=== PATIENT | female | born 1940 | race Caucasian/White ===

== ENCOUNTER 2017-08-30 10:40 | Inpatient (IN) | payer MEDICARE, OTHER ==
[~2017-08-30] VITALS: Ht 152.4 cm; Wt 84.8 kg
[~2017-08-30 10:40] MED LIST: ACET500 PO; ANTI DIARRHEA PO; ASCO500 PO; ASPI325 PO; ASTELIN; Amoxicillin875 MG PO; CALMAGZIN PO; CIPRO500 MG PO; DIPH50 PO; FAMO20 PO; FEXPSEER PO; FISH1000 PO; HYDACE10B PO; HYDR1TAB94 PO; LEVSOD25 PO; LISI10 PO; LISI20 PO; METF500 PO; METF500C PO; METR500 PO; NORT25 PO; Refresh Eye Dr1 EACH OP; SIMV10 PO; TOLT2 PO; UBID10 PO
[2017-09-05] MEDS ORDERED: LISI20 PO (14:24)
[2017-09-05] MEDS ORDERED: Allegra-D 12 H1 EACH PO (14:25)
[2017-09-05] MEDS ORDERED: LEVSOD75 PO (14:26)
[2017-09-05] MEDS ORDERED: SIMV40 PO (14:27)
[2017-09-05] MEDS ORDERED: CALCIUM PO (14:27)
[2017-09-05] MEDS ORDERED: [UNRECOGNIZED DRUG - OTHER] PO (14:28)
[2017-09-05] MEDS ORDERED: ACET325 PO (14:29)
[2017-09-05] MEDS ORDERED: GAVILAX17 GM PO (14:31)
[2017-09-05] MEDS ORDERED: METF500 PO (14:31)
[2017-09-05] MEDS ORDERED: TOLT2 PO (14:31)
[2017-09-05] MEDS ORDERED: TUMS200 MG PO (14:32)
[2017-09-05] MEDS ORDERED: FISH OIL + D31 EACH PO (14:33)
[2017-09-05] MEDS ORDERED: CHOL10002 PO (14:33)
[2017-09-05] MEDS ORDERED: NORT25 PO (14:34)
[2017-09-05] MEDS ORDERED: METR500 PO (14:35)
[2017-09-05] MEDS ORDERED: COQ1050 MG PO (14:40)
[2017-09-16 05:41] LABS: BASOPHILS ABSOLUTE AUTO 0.02 K/mm3 (0.00-0.23); BASOPHILS PERCENT AUTO 0 % (0-2); EOSINOPHILS ABSOLUTE AUTO 0.01 K/mm3 (0.00-0.68); EOSINOPHILS PERCENT AUTO 0 % (0-6); Hematocrit 32.1 % (33.0-51.0); Hemoglobin 10.5 g/dL (11.5-16.0); IMMATURE GRAN ABSOLUTE AUTO 0.06 K/mm3 (0.00-0.10); IMMATURE GRAN PERCENT AUTO 1 % (0-1); LYMPHOCYTES ABSOLUTE AUTO 1.63 K/mm3 (0.84-5.20); LYMPHOCYTES PERCENT AUTO 13 % (21-46); MONOCYTES ABSOLUTE AUTO 0.76 K/mm3 (0.16-1.47); MONOCYTES PERCENT AUTO 6 % (4-13); Mean Corpuscular HGB 28.7 pg (26.0-34.0); Mean Corpuscular HGB Conc 32.7 g/dL (31.5-36.5); Mean Corpuscular Volume 88 fL (80-100); NEUTROPHILS ABSOLUTE AUTO 10.38 K/mm3 (1.96-9.15); NEUTROPHILS PERCENT AUTO 81 % (41-73); Platelet Count 292 K/mm3 (150-400); RDW Coefficient Variation 13.2 % (11.7-14.2); RDW Standard Deviation 41.8 fL (35.1-46.3); Red Blood Cell Count 3.66 M/mm3 (3.80-5.20); White Blood Cell Count 12.86 K/mm3 (4.00-11.30)
[2017-09-16 06:02] LABS: Anion Gap 9 mmol/L (6-16); Blood Urea Nitrogen 23 mg/dL (8-24); Bun/Creatinine Ratio 30.3 (12.0-20.0); CO2, Blood 26 mmol/L (21-32); Calcium, Blood 8.8 mg/dL (8.5-10.1); Chloride, Blood 97 mmol/L (98-108); Creatinine, Blood 0.76 mg/dL (0.40-1.00); Glomerular Filtration Rate >60 (60-); Glucose, Blood 131 mg/dL (70-99); Potassium, Blood 5.1 mmol/L (3.5-5.5); Sodium, Blood 132 mmol/L (136-145)
[2017-09-16] MEDS ORDERED: Percocet 5-3251 EACH PO (08:47)
[2017-09-16] MEDS ORDERED: ASPI325EC PO (08:47)
[2018-07-20] MEDS ORDERED: ALLEGRA ALLERGY60 MG PO (14:41)
[2018-07-20] MEDS ORDERED: Synthroid25 MCG PO (14:41)
[2018-07-20] MEDS ORDERED: [UNRECOGNIZED DRUG - OTHER] PO (14:43)
== END 2017-09-16 11:19 | disposition home or self-care (01) | DRG 483 ==
LOC: SURS 09-15 06:05 → PRE IP 09-15 07:30 → SURS 09-15 10:50
PROVIDERS: Orthopaedic Surgery
PROC: 0RRK0JZ Replacement of Left Shoulder Joint with Synthetic Substitute, Open Approach (ICD-10-PCS; principal; 2017-09-15 07:30)
DX: M19.012 Primary osteoarthritis, left shoulder (principal); E11.9 Type 2 diabetes mellitus without complications; E78.5 Hyperlipidemia, unspecified; I10 Essential (primary) hypertension; G47.33 Obstructive sleep apnea (adult) (pediatric); Z79.82 Long term (current) use of aspirin; Z79.84 Long term (current) use of oral hypoglycemic drugs; Z79.899 Other long term (current) drug therapy
CPT/HCPCS: 36415; 73030; 80048; 82947; 85025; 86850; 86900; 86901; 88300; 94762; 97110; 97161; 97165; 97530; 97535; C1776; G8978; G8979; G8987; G8988; G8989; J0171; J0690; J0735; J1100; J1885; J2250; J2405; J2710; J2795; J7120; Q0163

== ENCOUNTER → 2018-01-18 | Outpatient (CLI) | payer MEDICARE, OTHER ==
[~2018-01-18] MED LIST changes: +ACET325 PO; +ASPI325EC PO; +Allegra-D 12 H1 EACH PO; +CALCIUM PO; +CHOL10002 PO; +COQ1050 MG PO; +FISH OIL + D31 EACH PO; +GAVILAX17 GM PO; +LEVSOD75 PO; +Percocet 5-3251 EACH PO; +SIMV40 PO; +TUMS200 MG PO; +[UNRECOGNIZED DRUG - OTHER] PO
[2018-01-20 15:26] LABS: Stool Occult Bld Immuno 1 Negative (NEGATIVE); Stool Occult Bld Immuno 2 Negative (NEGATIVE)
== END ==
LOC: OLS 10:30 → LAB SHORT 10:30
PROVIDERS: Internal Medicine Gastroenterology
DX: Z86.010 Personal history of colon polyps (principal); K57.30 Diverticulosis of large intestine without perforation or abscess without bleeding; Z83.71 Family history of colonic polyps
CPT/HCPCS: 82274

== ENCOUNTER 2018-08-02 08:28 | Day surgery (SDC) | payer MEDICARE, OTHER ==
[~2018-08-02] VITALS: Ht 154.9 cm; Wt 89.5 kg
[~2018-08-02 08:28] MED LIST changes: +ALLEGRA ALLERGY60 MG PO; +Synthroid25 MCG PO; +[UNRECOGNIZED DRUG - OTHER] PO
== END 2018-08-02 10:36 | disposition home or self-care (01) ==
LOC: ORSCSDS 08:28
PROVIDERS: Ophthalmology
PROC: 08RJ3JZ Replacement of Right Lens with Synthetic Substitute, Percutaneous Approach (ICD-10-PCS; principal; 2018-08-02 10:00)
DX: H25.11 Age-related nuclear cataract, right eye (principal); I10 Essential (primary) hypertension; G47.33 Obstructive sleep apnea (adult) (pediatric); E11.9 Type 2 diabetes mellitus without complications; E66.01 Morbid (severe) obesity due to excess calories; Z68.37 Body mass index [BMI] 37.0-37.9, adult; Z79.899 Other long term (current) drug therapy; Z79.82 Long term (current) use of aspirin
CPT/HCPCS: 82947; J0360; J2250; J3010; J3301; V2632

== ENCOUNTER 2018-09-20 06:12 | Day surgery (SDC) | payer MEDICARE, OTHER ==
[~2018-09-20] VITALS: Ht 152.4 cm; Wt 90.3 kg
== END 2018-09-20 08:05 | disposition home or self-care (01) ==
LOC: ORSCSDS 06:12
PROVIDERS: Ophthalmology
PROC: 08RK3JZ Replacement of Left Lens with Synthetic Substitute, Percutaneous Approach (ICD-10-PCS; principal; 2018-09-20 07:30)
DX: H25.12 Age-related nuclear cataract, left eye (principal); I10 Essential (primary) hypertension; G47.33 Obstructive sleep apnea (adult) (pediatric); Z79.899 Other long term (current) drug therapy; E66.01 Morbid (severe) obesity due to excess calories; Z68.38 Body mass index [BMI] 38.0-38.9, adult
CPT/HCPCS: 82947; J2001; J2250; J3010; J3301; J7120; V2632

== ENCOUNTER 2019-09-27 07:48 | Day surgery (SDC) | payer MEDICARE, OTHER ==
[~2019-09-27] VITALS: Ht 152.4 cm; Wt 92.3 kg
[2019-09-27] MEDS ORDERED: ASPI325 PO (08:29)
[2019-09-27] MEDS ORDERED: CALCIUM-MAGNES1 EAC3 PO (08:30)
--- NOTE | 2019-09-27 10:44 | NUR ---
09/27/19 1044 Mele Hernández A SMALL SKIN TEARS ON RIGHT FOREARM NOTED AFTER REMOVING DRAPS. BACITRACIN, XEROFORM AND OPSITE PLACED. DR SHARMA AWARE.
--- NOTE | 2019-09-27 11:10 | NUR ---
09/27/19 1110 Juanita Bates PT ARRIVED IN STEPDOWN AND BECAME NAUSEAS TRANSFERRING TO CHAIR. O2 SAT WAS DECREASED AT 88-89. BP AND HR WAS DECREASED AT 99/51 AND 51. ZOFRAN GIVEN AND 02 WAS REAPPLIED 1OLPM VIA FACE TENT. O2 INCREASED TO 99. BP AND HR REMAIN UNCHANGED.
== END 2019-09-27 13:37 | disposition home or self-care (01) ==
LOC: ORSCSDS 07:48
PROVIDERS: Orthopaedic Surgery
PROC: 0RQS0ZZ Repair Right Carpometacarpal Joint, Open Approach (ICD-10-PCS; principal; 2019-09-27 09:30)
PROC: 0LN70ZZ Release Right Hand Tendon, Open Approach (ICD-10-PCS; principal; 2019-09-27 09:30)
PROC: 0LX70ZZ Transfer Right Hand Tendon, Open Approach (ICD-10-PCS; principal; 2019-09-27 09:30)
DX: M18.11 Unilateral primary osteoarthritis of first carpometacarpal joint, right hand (principal); M65.311 Trigger thumb, right thumb; I10 Essential (primary) hypertension; E11.9 Type 2 diabetes mellitus without complications; E78.5 Hyperlipidemia, unspecified; E66.01 Morbid (severe) obesity due to excess calories; Z68.39 Body mass index [BMI] 39.0-39.9, adult; Z79.899 Other long term (current) drug therapy; Z79.82 Long term (current) use of aspirin; Z79.84 Long term (current) use of oral hypoglycemic drugs
CPT/HCPCS: 82947; A9270-GY; C1713; J0690; J1100; J2250; J2370; J2405; J2704; J2795; J3010; J7120

== ENCOUNTER → 2021-01-01 | Outpatient (CLI) | payer MEDICARE, OTHER ==
[~2021-01-01] MED LIST changes: +CALCIUM-MAGNES1 EAC3 PO
== END | disposition home or self-care (01) ==
LOC: LAB 11:36 → LAB SHORT 11:36
DX: L82.0 Inflamed seborrheic keratosis (principal)
CPT/HCPCS: 88304

== ENCOUNTER → 2023-05-31 | Outpatient (CLI) | payer MEDICARE, OTHER | END | disposition home or self-care (01) | LOC: LAB 14:09 → LAB SHORT 14:09 | DX: E03.9 Hypothyroidism, unspecified (principal) | CPT/HCPCS: 84443 ==

== ENCOUNTER 2023-08-18 08:03 | Emergency (ER) | payer MEDICARE, OTHER ==
[~2023-08-18] VITALS: Ht 152.4 cm; Wt 83.0 kg
[2023-08-18 08:21] VITALS: BP 129/77
[2023-08-18 08:44] LABS: BASOPHILS ABSOLUTE AUTO 0.05 K/mm3 (0.00-0.23); BASOPHILS PERCENT AUTO 0 % (0-2); EOSINOPHILS ABSOLUTE AUTO 0.17 K/mm3 (0.00-0.68); EOSINOPHILS PERCENT AUTO 1 % (0-6); Hematocrit 42.5 % (33.0-51.0); IMMATURE GRAN ABSOLUTE AUTO 0.07 K/mm3 (0.00-0.10); IMMATURE GRAN PERCENT AUTO 1 % (0-1); LYMPHOCYTES ABSOLUTE AUTO 1.96 K/mm3 (0.84-5.20); LYMPHOCYTES PERCENT AUTO 16 % (21-46); MONOCYTES ABSOLUTE AUTO 0.79 K/mm3 (0.16-1.47); MONOCYTES PERCENT AUTO 6 % (4-13); Mean Corpuscular HGB Conc 32.9 g/dL (31.5-36.5); Mean Corpuscular Volume 88 fL (80-100); Mean Platelet Volume 9.3 fL (9.1-12.4); NEUTROPHILS ABSOLUTE AUTO 9.42 K/mm3 (1.96-9.15); NEUTROPHILS PERCENT AUTO 76 % (41-73); Platelet Count 331 K/mm3 (150-400); RDW Coefficient Variation 14.1 % (11.7-14.2); RDW Standard Deviation 45.1 fL (35.1-46.3); Red Blood Cell Count 4.82 M/mm3 (3.80-5.20); White Blood Cell Count 12.46 K/mm3 (4.00-11.30)
[2023-08-18 09:01] LABS: Albumin, Blood 3.5 g/dL (3.4-5.0); Albumin/Globulin Ratio 0.9 (0.8-1.8); Bilirubin, Total 2.1 mg/dL (0.1-1.0); Bun/Creatinine Ratio 20.6 (12.0-20.0); Calcium, Blood 10.1 mg/dL (8.5-10.1); Creatinine, Blood 0.92 mg/dL (0.40-1.00); Globulin, Blood 4.1 g/dL (2.2-4.0); Potassium, Blood 4.5 mmol/L (3.5-5.5); Total Protein, Blood 7.6 g/dL (6.4-8.2)
[2023-08-18] MEDS ORDERED: AMOCLA875 PO (09:45)
== END 2023-08-18 10:00 | disposition home or self-care (01) ==
LOC: ER 08:03
PROVIDERS: Student in an Organized Health Care Education/Training Program
DX: K57.32 Diverticulitis of large intestine without perforation or abscess without bleeding (principal); I10 Essential (primary) hypertension; Z79.899 Other long term (current) drug therapy; Z79.84 Long term (current) use of oral hypoglycemic drugs; Z79.82 Long term (current) use of aspirin
CPT/HCPCS: 74177; 80053; 83690; 85025; 99284-25; A9270; Q9967

== ENCOUNTER 2023-09-22 12:28 | Emergency (ER) | payer MEDICARE, OTHER ==
[~2023-09-22] VITALS: Ht 152.4 cm; Wt 82.5 kg
[~2023-09-22 12:28] MED LIST changes: +AMOCLA875 PO
[2023-09-22 12:59] VITALS: BP 157/73
[2023-09-22 14:40] LABS: BASOPHILS ABSOLUTE AUTO 0.04 K/mm3 (0.00-0.23); BASOPHILS PERCENT AUTO 0 % (0-2); EOSINOPHILS ABSOLUTE AUTO 0.17 K/mm3 (0.00-0.68); EOSINOPHILS PERCENT AUTO 2 % (0-6); Hematocrit 39.1 % (33.0-51.0); Hemoglobin 12.7 g/dL (11.5-16.0); IMMATURE GRAN ABSOLUTE AUTO 0.06 K/mm3 (0.00-0.10); IMMATURE GRAN PERCENT AUTO 1 % (0-1); LYMPHOCYTES ABSOLUTE AUTO 2.05 K/mm3 (0.84-5.20); LYMPHOCYTES PERCENT AUTO 20 % (21-46); MONOCYTES ABSOLUTE AUTO 0.61 K/mm3 (0.16-1.47); MONOCYTES PERCENT AUTO 6 % (4-13); Mean Corpuscular HGB 29.1 pg (26.0-34.0); Mean Corpuscular HGB Conc 32.5 g/dL (31.5-36.5); Mean Corpuscular Volume 90 fL (80-100); Mean Platelet Volume 9.5 fL (9.1-12.4); NEUTROPHILS ABSOLUTE AUTO 7.43 K/mm3 (1.96-9.15); NEUTROPHILS PERCENT AUTO 72 % (41-73); Platelet Count 316 K/mm3 (150-400); RDW Coefficient Variation 14.3 % (11.7-14.2); RDW Standard Deviation 46.5 fL (35.1-46.3); Red Blood Cell Count 4.37 M/mm3 (3.80-5.20); White Blood Cell Count 10.36 K/mm3 (4.00-11.30)
[2023-09-22 14:47] LABS: Albumin, Blood 3.4 g/dL (3.4-5.0); Albumin/Globulin Ratio 0.9 (0.8-1.8); Bilirubin, Total 1.7 mg/dL (0.1-1.0); Bun/Creatinine Ratio 23.8 (12.0-20.0); Calcium, Blood 9.9 mg/dL (8.5-10.1); Creatinine, Blood 0.76 mg/dL (0.40-1.00); Globulin, Blood 3.9 g/dL (2.2-4.0); Potassium, Blood 4.3 mmol/L (3.5-5.5); Total Protein, Blood 7.3 g/dL (6.4-8.2)
[2023-09-22] MEDS ORDERED: AMOCLA875 PO (16:09)
== END 2023-09-22 16:30 | disposition home or self-care (01) ==
LOC: ER 12:28
PROVIDERS: Physician Assistant
DX: K57.51 Diverticulosis of both small and large intestine without perforation or abscess with bleeding (principal); K80.20 Calculus of gallbladder without cholecystitis without obstruction; I10 Essential (primary) hypertension; E78.5 Hyperlipidemia, unspecified; E11.9 Type 2 diabetes mellitus without complications; E03.9 Hypothyroidism, unspecified; G47.30 Sleep apnea, unspecified; Z79.899 Other long term (current) drug therapy; Z79.82 Long term (current) use of aspirin; Z79.84 Long term (current) use of oral hypoglycemic drugs
CPT/HCPCS: 74177; 80053; 85025; 99284-25; Q9967

== ENCOUNTER → 2024-01-01 | Outpatient (CLI) | payer MEDICARE, OTHER ==
[2024-01-02 14:36] LABS: Creatinine, Urine Random 97.7 mg/dL (27.00-270.00); Microalb/Creat Ratio UR, Rand 9.263 mg/g (0.000-30.000); Microalbumin, Random Urine 9.05 mg/L (0.000-20.000)
== END ==
LOC: LAB SHORT 10:26 → LAB 10:26 → LAB SHORT 01-02 10:24
PROVIDERS: Family Medicine
DX: E11.9 Type 2 diabetes mellitus without complications (principal)
CPT/HCPCS: 82043; 82570